=== PATIENT | male | born 1970 | race Caucasian/White ===

== ENCOUNTER 2017-01-02 12:43 | Emergency (ER) | payer BC ==
[2017-01-02] MEDS ORDERED: Morphine 4 MG/ML Syringe ONE (13:00)
[2017-01-02] MEDS ORDERED: Morphine 4 MG/ML Syringe IVPUSH ONE (13:02)
[2017-01-02 13:15] VITALS: BP 158/84
--- NOTE | 2017-01-02 13:31 | EDM.PDOC ---
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 Tetanus was updated 2.5 years ago. - Related Data Allergies Allergy/AdvReac Type Severity Reaction Status Date / Time aspirin Allergy Cannot Verified 01/02/17 12:59 Remember Review of Systems - Review of Systems Review Of Systems: See Below Constitutional: Denies: Chills, Fever, Weakness Eyes: Denies: Vision Change Ears: Denies: Dizziness Nose: Reports: No Symptoms Mouth/Throat: Reports: No Symptoms Respiratory: Denies: Shortness of Breath Cardiovascular: Denies: Chest Pain GI/Abdominal: Denies: Nausea, Vomiting Genitourinary: Reports: No Symptoms Musculoskeletal: Reports: No Symptoms Skin: Denies: Cyanosis, Jaundice, Mottled, Pallor, Diaphoresis Neurological: Denies: Confusion, Dizziness Psychiatric: Denies: Confusion ED EXAM, GENERAL - Physical Exam Exam: See Below Exam Limited By: No Limitations General Appearance: Alert, WD/WN, No Apparent Distress Eye Exam: Bilateral Eye: EOMI, Normal Inspection, PERRL Ears: Normal External Exam, Hearing Grossly Normal Nose: Normal Inspection, No Blood Throat/Mouth: Normal Inspection, Normal Lips, Normal Voice, No Airway Compromise Head: Atraumatic, Normocephalic Neck: Normal Inspection, Full Range of Motion Respiratory/Chest: No Respiratory Distress, Lungs Clear, Normal Breath Sounds Cardiovascular: Regular Rate, Rhythm, No Murmur Extremities: Normal Range of Motion, Normal Capillary Refill Neurological: Alert, Oriented, Normal Cognition, No Motor/Sensory Deficits Psychiatric: Normal Affect, Normal Mood Skin Exam: Warm, Dry, Normal Color, No Rash ED TRAUMA EXTREMITY PROCEDURES - Laceration/Wound Repair Left Distal Ventral Finger Lac/Wound Length In cm: 2.0 Appearance: Subcutaneous, Mildly Contaminated Distal NVT: Neuro & Vascular Intact, No Tendon Injury Anesthetic Type: Local Local Anesthesia - Lidocaine (Xylocaine): 2% Plain Local Anesthetic Volume: 2cc Skin Prep: Chlorhexidine (Hibiciens) Exploration/Debridement/Repair: Wound Explored, In a Bloodless Field, Explored to Base Closed With: Sutures Suture Size: other (5-0) # of Sutures: 3 Suture Type: Nylon, Interrupted, Simple Drain Placement: No Sterile Dressing Applied: Provider Tetanus Status Addressed: Yes Complications: No Progress/Comments: The laceration/avulsion involved the medial/volar pad of the left small finger to the distal nail bed. A superficial vessel was bleeding persistently so was cauterized. The soft tissue over the distal bone/tuft is intact without exposed bone. The wound edges are partially re-approximated which narrows the wound diameter about 50% without over-tensioning the wound edges. Capillary refill was present following closure with 3 simple interrupted nylon sutures across the wound. Course - Vital Signs Last Recorded V/S: Last Vital Signs Temp 98.8 F 01/02/17 13:13 Pulse 72 01/02/17 13:13 Resp 18 01/02/17 13:13 BP 158/84 H 01/02/17 13:13 Pulse Ox 98 01/02/17 13:13 - Orders/Labs/Meds Orders: Active Orders 24 hr Category Date Time Status Fingers Fifth Digit Lt F4 [CR] Routine Exams 01/02/17 Ordered Meds: Medications Discontinued Medications Generic Name Dose Route Start Last Admin Trade Name Freq PRN Reason Stop Dose Admin Morphine Sulfate Confirm 01/02/17 13:00 Morphine Administered 01/02/17 13:01 Dose 4 mg .ROUTE .STK-MED ONE Morphine Sulfate 4 mg 01/02/17 13:02 Morphine IVPUSH 01/02/17 13:03 ONETIME ONE - Re-Assessments/Exams Free Text/Narrative Re-Assessment/Exam: 01/02/17 14:24 Xrays show no bony pathology but incidentally noted a metallic fragment in volar surface of 3rd MCP. There is no sign of recent puncture or injury at that site. Pt isn't aware of any problem there. Discussed findings and treatment plan with patient. Patient discharged in stable condition. Departure - Departure Time of Disposition: 14:16 Disposition: Home, Self-Care 01 Condition: Good Clinical Impression: Fingertip avulsion Qualifiers: Encounter type: initial encounter Qualified Code(s): S61.209A - Unspecified open wound of unspecified finger without damage to nail, initial encounter - Discharge Information Referrals: PCP,Not In Area [Primary Care Provider] - Additional Instructions: 1. Keep wound clean and dry. 2. Change the bandages in 48 hours. You can wash carefully with fresh water in shower or faucet but don't submerge in sink or tub. 3. Take the antibiotic as directed. 4. Recheck with your PCP at any point if you notice signs of infection like fever, redness, drainage or increasing pain. 5. Follow up with your PCP in 10-14 days for suture removal. - My Orders Last 24 Hours: My Active Orders 01/02/17 Fingers Fifth Digit Lt F4 [CR] Routine - Assessment/Plan Last 24 Hours: My Active Orders 01/02/17 Fingers Fifth Digit Lt F4 [CR] Routine
[2017-01-02] MEDS ORDERED: Lidocaine 2% 5 ML SDV ONE (13:37)
[2017-01-02] MEDS ORDERED: Lidocaine 2% 20 ML MDV INJECT ONE (13:52)
== END 2017-01-02 14:30 | disposition home or self-care (01) ==
LOC: KA.ED 12:43
DX: S61.207A Unspecified open wound of left little finger without damage to nail, initial encounter (principal); W31.9XXA Contact with unspecified machinery, initial encounter; Z23 Encounter for immunization
CPT/HCPCS: 12001; 73140; 96374; 99283; J2270